=== PATIENT | female | born 1990 | race Caucasian/White ===

== ENCOUNTER 2020-01-24 11:44 | Emergency (ER) | payer MEDICAID, OTHER ==
--- OUTSIDE RECORDS SUMMARY | 2020-01-24 12:40 | XMS REPORT | Summary of Care ---
:1990 Author Organization [facility] Address [address] [place] [address] Care Team Providers Name Role Phone Shani Rodas Primary Care Provider Reason for Visit Reason Comments Ear Pain left Encounter Details Date Type Department Care Team Description 01/07/2020 Office Visit [facility] Stack, Bri, Acute otalgia, left [address] [employer]TE[employer]ICIAN (Primary Dx) [place] [id number] [address] [facility] [phone] [place] [address] Allergies Active Allergy Reactions Severity Noted Date Comments Gluten Meal GI Reaction 07/06/2014 Sumatriptan Succinate GI Reaction 04/10/2014 documented as of this encounter (statuses as of 01/09/2020) Medications Medication Sig Dispensed Refills Start Date End Date Status fluticasone (FLONASE) [place] 2 Sprays in 16 g 0 12/07/2018 Active 50 MCG/ACT Nasal nose DAILY. Suspension Vit-Fe Take 1 Tab by 0 Active Fumarate-FA ( mouth DAILY. COMPLETE PO) Norethindrone, Take 1 Tab by 0 Active Contraceptive, mouth. (JOLIVETTE) 0.35 MG Oral Tab Potassium Chloride CR 8 TAKE 1 CAPSULE BY 90 Cap 1 11/07/2019 Active MEQ Oral Cap CR MOUTH ONCE DAILY busPIRone (BUSPAR) 10 Take 1 Tab by 180 Tab 1 11/07/2019 Active MG Oral TabIndications: mouth TWICE Other depression DAILY. venlafaxine (EFFEXOR Take 1 Cap by 180 Cap 1 11/07/2019 Active XR) 75 MG Oral CAPSULE mouth TWICE SR 24 HRIndications: DAILY. Nonintractable migraine, unspecified migraine type ondansetron (ZOFRAN) 4 Take 4 mg by 18 Tab 0 11/15/2019 Active MG Oral Tab mouth EVERY EIGHT HOURS NEEDED (for migraine with nausea). butalbital-acetaminophe TAKE 1 TABLET BY 28 Tab 0 11/15/2019 Active n-caffeine (FIORICET) MOUTH EVERY 4 50-325-40 MG Oral Tab HOURS (MAX 6 TABS DAILY) amoxicillin-clavulanic Take 1 Tab by 20 Tab 0 01/07/2020 Active acid (AUGMENTIN) mouth TWICE 875-125 MG Oral DAILY. TabIndications: Acute otalgia, left Hospital, Clinic, or Other Ordered Dose Route Frequency Start Date End Date Status Facility Administered Medication carbamide peroxide (DEBROX 4 Drop AD BID 09/11/2017 Active OTIC, EAR WAX REMOVAL) otic solution 6.5 % documented as of this encounter (statuses as of 01/09/2020) Active Problems Problem Noted Date Depression 03/02/2017 Acute recurrent sinusitis 02/25/2016 Nephrolithiasis 01/04/2016 Adult BMI 30+ 09/06/2014 Shoulder pain 07/06/2014 Shoulder instability 05/01/2014 Right shoulder pain 04/10/2014 Muscle atrophy of upper extremity 04/10/2014 PONV (postoperative nausea and vomiting) Migraine Generalized anxiety disorder Comments Yes documented as of this encounter (statuses as of 01/09/2020) Immunizations Name Administration Dates Next Due Influenza (IM) Preservative Free 07/25/2019, 09/11/2017 documented as of this encounter Social History Tobacco Use Types Packs/Day Years Used Date Never Smoker Smokeless Tobacco: Never Used Alcohol Use Drinks/Week oz/Week Comments No Comments Yes Sex Assigned at Date Recorded Not on file Job Start Date Occupation Industry Not on file Not on file Not on file Travel History Travel Start Travel End No recent travel history available. documented as of this encounter Last Filed Vital Signs Vital Sign Reading Time Taken Comments Blood Pressure 124/72 01/07/2020 11:21 AM EST Pulse 73 01/07/2020 11:21 AM EST Temperature 36.8 01/07/2020 11:21 AM EST C (98.3 F) Respiratory Rate 18 01/07/2020 11:21 AM EST Oxygen Saturation 98% 01/07/2020 11:21 AM EST Inhaled Oxygen Concentration - - Weight - - Height - - Body Mass Index - - documented in this encounter Patient Instructions Patient InstructionsSophyBriCHANDRIKA - 01/07/2020 11:00 AM EST Please get medically evaluated if your ear pain does not improve Patient Education Ear Infections (Otitis Media) Discharge Instructions About this topic Otitis media means you have an infection or inflammation in your middle ear. Your eardrum and the space behind it is your middle ear. If you have a cold, allergies, or an infection, your middle ear canbecome filled with mucus. Most often, tubes in your throat can clear this mucus. When you are sick, they can become blocked, and fluid may build up in the middle part of your ear. Germs can infect thisfluid causing an ear infection or otitis media. What care is needed at home? Ask your doctor what you need to do when you go home. Make sure you ask questions if you do notunderstand what the doctor says. This way you will know what you need to do. Use a heating pad or warm water bottle on the ear to help ease the pain. If your doctor tells you to use heat, put a heating pad on your ear for no more than 20 minutes at a time. Never go to sleep with a heating pad on as this can cause anthony. You can also try ice to help ease your pain. Place an ice pack or a bag of frozen peas wrapped in a towel over the painful part. Never put ice right on the skin. Do not leave the ice on more than 10 to 15 minutes at a time. You may go back to school or work when you feel well. Do not swim if you have a burst eardrum. Ask your doctor if you should wear earplugs while swimming. Do not put anything in the ear unless told by your doctor. What follow-up care is needed? Otitis media may need to be monitored. Your doctor may ask you to make visits to the office to check on your progress. Be sure to keep these visits. You may need to go see other doctors if you have problems hearing or have many ear infections. What drugs may be needed? The doctor may order drugs to: Help with pain Fight an infection Will physical activity be limited? Do not drive or run machines if you are taking drugs that make you drowsy. You should avoid flying and diving. You may return to normal activities when signs have gone away. What problems could happen? Loss of hearing Long-term hearing problems Very bad infection in the bone behind the eardrum Problems with balance What can be done to prevent this health problem? If you smoke, quit. Do not go near people who smoke. Stay away from people who have colds. Wash your hands often. When do I need to call the doctor? Fever of 100.4F (38C) or higher after 3 days of taking antibiotics Feeling drowsy or confused Neck pain, stiff neck, or headache Fluid or blood drains from the ear canal Seizure Dizziness You are not feeling better in 2 or 3 days or you are feeling worse Teach Back: Helping You Understand The Teach Back Method helps you understand the information we are giving you. The idea is simple. After talking with the staff, tell them in your own words what you were just told. This helps to make sure the staff has covered each thing clearly. It also helps to explain things that may have been a bit confusing. Before going home, make sure you are able to do these: I can tell you about my condition. I can tell you what may help ease my pain. I can tell you what I will do if I have neck pain, a stiff neck, or fluid draining from my ear. Where can I learn more? [employer] https://familydoctor.org/condition/qejtgt-nglqs-uaye-effusion/ Kids [employer] http://kidshealth.org/parent/infections/ear/otitis_media.html National [place] on Deafness and Other Communication Disorders http://www.nidcd.nih.gov/health/hearing/Pages/earinfections.aspx Last Reviewed Date 2018-02-16 Consumer Information Use and Disclaimer This information is not specific medical advice and does not replace information you receive from your health care provider. This is only a brief summary of general information. It does NOT include allinformation about conditions, illnesses, injuries, tests, procedures, treatments, therapies, discharge instructions or life-style choices that may apply to you. You must talk with your health care provider for complete information about your health and treatment options. This information should not beused to decide whether or not to accept your health care providers advice, instructions or recommendations. Only your health care provider has the knowledge and training to provide advice that isright for you. Copyright Copyright 2019 [employer] and its affiliates and/or licensors. All rights reserved. documented in this encounter Progress Notes Bri Beckett CRNP - 01/07/2020 11:00 AM EST PATIENT: Qing Patricia : 1990 DATE OF SERVICE: 01/07/2020 CHIEF COMPLAINT: Chief Complaint Patient presents with Ear Pain left Subjective HISTORY OF PRESENT ILLNESS: Qing Patricia is a 29-y.o. female. HPI She started with left ear ache on Thursday She reports its a constant throb She has not taking anything for her pain She is eating and drinking ok No ear drainage Reports she called for an appt yesterday but could not get in to the office due to the snow Her kids were sick with viruses last week but she did not feel sick Reports she has had an ear infection in the past Past Medical History: Diagnosis Date Generalized anxiety disorder Migraine PONV (postoperative nausea and vomiting) History reviewed. No pertinent family history. Current Outpatient Medications Medication Sig amoxicillin-clavulanic acid (AUGMENTIN) 875-125 MG Oral Tab Take 1 Tab by mouth TWICE DAILY. busPIRone (BUSPAR) 10 MG Oral Tab Take 1 Tab by mouth TWICE DAILY. kxjelnmhdg-sapmsgrfiqclv-zyssqrob (FIORICET) 50-325-40 MG Oral Tab TAKE 1 TABLET BY MOUTH EVERY 4 HOURS (MAX 6 TABS DAILY) fluticasone (FLONASE) 50 MCG/ACT Nasal Suspension [place] 2 Sprays in nose DAILY. Norethindrone, Contraceptive, (JOLIVETTE) 0.35 MG Oral Tab Take 1 Tab by mouth. ondansetron (ZOFRAN) 4 MG Oral Tab Take 4 mg by mouth EVERY EIGHT HOURS NEEDED (for migraine with nausea). Potassium Chloride CR 8 MEQ Oral Cap CR TAKE 1 CAPSULE BY MOUTH ONCE DAILY Vit-Fe Fumarate-FA ( COMPLETE PO) Take 1 Tab by mouth DAILY. venlafaxine (EFFEXOR XR) 75 MG Oral CAPSULE SR 24 HR Take 1 Cap by mouth TWICE DAILY. Current Facility-Administered Medications Medication carbamide peroxide (DEBROX OTIC, EAR WAX REMOVAL) otic solution 6.5 % Allergies Allergen Reactions Gluten Meal GI Reaction Imitrex [Sumatriptan Succinate] GI Reaction Social History Socioeconomic History Marital status: Single Spouse name: Not on file Number of children: Not on file Years of education: Not on file Highest education level: Not on file Occupational History Not on file Social Needs Financial resource strain: Not on file Food insecurity Worry: Not on file Inability: Not on file Transportation needs Medical: Not on file Non-medical: Not on file Tobacco Use Smoking status: Never Smoker Smokeless tobacco: Never Used Substance and Sexual Activity Alcohol use: No Drug use: No Sexual activity: Yes Partners: Male Comment: single SO x 11 months Lifestyle Physical activity Days per week: Not on file Minutes per session: Not on file Stress: Not on file Relationships Social connections Talks on phone: Not on file Gets together: Not on file Attends gnosticist service: Not on file Active member of club or organization: Not on file Attends meetings of clubs or organizations: Not on file Relationship status: Not on file Intimate partner violence Fear of current or ex partner: Not on file Emotionally abused: Not on file Physically abused: Not on file Forced sexual activity: Not on file Other Topics Concern Not on file Social History Narrative Works at [employer] REVIEW OF SYSTEMS: ROS Objective PHYSICAL EXAM: VITALS: BP 124/72 | Pulse 73 | Temp 98.3 F (36.8 C) (Tympanic) | Resp 18 | SpO2 98% There is no height or weight on file to calculate BMI. Physical Exam Vitals signs and nursing note reviewed. HENT: Right Ear: Tympanic membrane normal. Left Ear: No tenderness. A middle ear effusion is present. No mastoid tenderness. Tympanic membrane is erythematous. Nose: Nose normal. Mouth/Throat: Mouth: Mucous membranes are moist. Neck: Musculoskeletal: Neck supple. No muscular tenderness. Cardiovascular: Rate and Rhythm: Normal rate. Pulmonary: Effort: Pulmonary effort is normal. Musculoskeletal: General: Swelling present. Skin: General: Skin is warm. Neurological: Mental Status: She is alert and oriented to person, place, and time. ASSESSMENT / IMPRESSION: ICD-9-CM ICD-10-CM 1. Acute otalgia, left 388.70 H92.02 amoxicillin-clavulanic acid (AUGMENTIN) 875 -125 MG Oral Tab Patient Instructions Please get medically evaluated if your ear pain does not improve Patient Education Ear Infections (Otitis Media) Discharge Instructions About this topic Otitis media means you have an infection or inflammation in your middle ear. Your eardrum and the space behind it is your middle ear. If you have a cold, allergies, or an infection, your middle ear canbecome filled with mucus. Most often, tubes in your throat can clear this mucus. When you are sick, they can become blocked, and fluid may build up in the middle part of your ear. Germs can infect thisfluid causing an ear infection or otitis media. What care is needed at home? Ask your doctor what you need to do when you go home. Make sure you ask questions if you do notunderstand what the doctor says. This way you will know what you need to do. Use a heating pad or warm water bottle on the ear to help ease the pain. If your doctor tells you to use heat, put a heating pad on your ear for no more than 20 minutes at a time. Never go to sleep with a heating pad on as this can cause anthony. You can also try ice to help ease your pain. Place an ice pack or a bag of frozen peas wrapped in a towel over the painful part. Never put ice right on the skin. Do not leave the ice on more than 10 to 15 minutes at a time. You may go back to school or work when you feel well. Do not swim if you have a burst eardrum. Ask your doctor if you should wear earplugs while swimming. Do not put anything in the ear unless told by your doctor. What follow-up care is needed? Otitis media may need to be monitored. Your doctor may ask you to make visits to the office to check on your progress. Be sure to keep these visits. You may need to go see other doctors if you have problems hearing or have many ear infections. What drugs may be needed? The doctor may order drugs to: Help with pain Fight an infection Will physical activity be limited? Do not drive or run machines if you are taking drugs that make you drowsy. You should avoid flying and diving. You may return to normal activities when signs have gone away. What problems could happen? Loss of hearing Long-term hearing problems Very bad infection in the bone behind the eardrum Problems with balance What can be done to prevent this health problem? If you smoke, quit. Do not go near people who smoke. Stay away from people who have colds. Wash your hands often. When do I need to call the doctor? Fever of 100.4F (38C) or higher after 3 days of taking antibiotics Feeling drowsy or confused Neck pain, stiff neck, or headache Fluid or blood drains from the ear canal Seizure Dizziness You are not feeling better in 2 or 3 days or you are feeling worse Teach Back: Helping You Understand The Teach Back Method helps you understand the information we are giving you. The idea is simple. After talking with the staff, tell them in your own words what you were just told. This helps to make sure the staff has covered each thing clearly. It also helps to explain things that may have been a bit confusing. Before going home, make sure you are able to do these: I can tell you about my condition. I can tell you what may help ease my pain. I can tell you what I will do if I have neck pain, a stiff neck, or fluid draining from my ear. Where can I learn more? [employer] https://familydoctor.org/condition/jsfdrl-lyygo-exdk-effusion/ Kids [employer] http://kidshealth.org/parent/infections/ear/otitis_media.html National [place] on Deafness and Other Communication Disorders http://www.nidcd.nih.gov/health/hearing/Pages/earinfections.aspx Last Reviewed Date 2018-02-16 Consumer Information Use and Disclaimer This information is not specific medical advice and does not replace information you receive from your health care provider. This is only a brief summary of general information. It does NOT include allinformation about conditions, illnesses, injuries, tests, procedures, treatments, therapies, discharge instructions or life-style choices that may apply to you. You must talk with your health care provider for complete information about your health and treatment options. This information should not beused to decide whether or not to accept your health care providers advice, instructions or recommendations. Only your health care provider has the knowledge and training to provide advice that isright for you. Copyright Copyright 2019 [employer] and its affiliates and/or licensors. All rights reserved. Plan Author: CHANDRIKA Deras 01/07/2020 11:31 documented in this encounter Plan of Treatment Date Type Specialty Care Team Description 01/27/2020 Office Visit Endocrinology Cherise Zelaya CRNP [address] [place] [address] 03/02/2020 Office Visit Family Practice Shani Rodas MD [address] [place] [address] Health Maintenance Due Date Last Done Comments DTaP/Tdap/Td Vaccines (1 - 2001 Tdap) PAP SMEAR 08/18/2017 08/18/2014 (Previously completed), 05/10/2013 DEPRESSION SCREENING 07/25/2020 07/25/2019 HIV SCREENING Completed 06/14/2015 INFLUENZA VACCINE Completed 07/25/2019, 09/11/2017 HEPATITIS A IMMUNIZATION Aged Out No longer eligible based SERIES on patient's age to complete this topic HPV IMMUNIZATION SERIES Aged Out No longer eligible based on patient's age to complete this topic MENINGOCOCCAL VACCINE IMM Aged Out No longer eligible based on patient's age to complete this topic PNEUMOCOCCAL 0-64 YRS Aged Out No longer eligible based on patient's age to complete this topic documented as of this encounter Goals Goal Patient Goal Associated Recent Patient-Stated? Author Type Problems Progress Depression Depression hernan Young (PHQ-9) MD Yuan total score < 5 Note: This is an individualized treatment (depression) goal for Qing Patricia: Displayed above is your goal for a depression screening (PHQ-9) score that would indicate good control of your depression. Keep a regular sleep schedule Lifestyle No Yuan Vega MD Note: This is an individualized lifestyle goal for Qing Patricai: Please maintain a regular sleep schedule. This may help with some symptoms of depression. Take all prescribed medications as directed Self-management No Yuan Vega MD Note: This is an individualized self-management goal for Qing Patricia: Please take all prescribed medications as directed. 1. Do not skip doses. If you cannot afford your medications, talk with your doctor. 2. Use a pill reminder system such as a pill box if needed. Your pharmacist can help you with this. 3. Contact your Pharmacy 5 days before your medication runs out. If you cannot take your medications for any reasons, talk with your doctor. 4. Please bring all of your medication bottles and inhalers (or a list of all your medications/inhalers) with you to every visit. Potential barriers to meeting all of your care plan goals will continue to be addressed on an ongoing basis. documented as of this encounter Results Not on filedocumented in this encounter Visit Diagnoses Diagnosis Acute otalgia, left documented in this encounter Guarantor Name Account Type Relation to Date of Phone Billing Patient Address Qing Patricia Personal/Family 1990 [address] (Home) [place], [place] [phone] (Work) documented as of this encounter"
[2020-01-24 12:45] VITALS: BP 116/73
--- NOTE | 2020-01-24 12:59 | UC ---
General HPI - HPI Summary HPI Summary: States she is rather clumsy and stepped wrong and initially injured her right ankle which appears to be getting better, but the lateral side of her right lower leg has continued to get worse. She has been hobbling around, wrapping her leg and using motrin without much relief. No falls. No hx of broken bones in the past. Meds: REviewed - History of Current Complaint Chief Complaint: UCLowerExtremity Stated Complaint: RIGHT LEG PAIN Time Seen by Provider: 01/24/20 12:51 Pain Intensity: 6 - Allergy/Home Medications Allergies/Adverse Reactions: Allergies Allergy/AdvReac Type Severity Reaction Status Date / Time sumatriptan [From Imitrex] Allergy Vomiting Verified 01/24/20 12:46 Home Medications: Home Medications Norethindrone 1 tab PO DAILY 01/24/20 [History Confirmed 01/24/20] Potassium Chlor TAB* [Klor Con ER TAB 10 MEQ*] 1 tab PO DAILY 01/24/20 [History Confirmed 01/24/20] Vitamin TAB* 1 tab PO DAILY 01/24/20 [History Confirmed 01/24/20] Venlafaxine CAP (NF) 75 mg PO BID 01/24/20 [History Confirmed 01/24/20] busPIRone TAB* [Buspar TAB*] 1 tab PO DAILY 01/24/20 [History Confirmed 01/24/20 ] PMH/Surg Hx/FS Hx/Imm Hx Previously Healthy: Yes - Surgical History Surgical History: Yes Surgery Procedure, Year, and Place: lithotrip stent r kidney,right knee , shoulder,lap - Social History Alcohol Use: None Substance Use Type: None Smoking Status (MU): Never Smoked Tobacco Review of Systems All Other Systems Reviewed And Are Negative: Yes Physical Exam Triage Information Reviewed: Yes Appearance: Well-Appearing Vital Signs: Initial Vital Signs Temp 97.8 F 01/24/20 12:41 Pulse 94 01/24/20 12:41 Resp 16 01/24/20 12:41 BP 116/73 01/24/20 12:41 Pulse Ox 100 01/24/20 12:41 Vital Signs Reviewed: Yes Eyes: Positive: Conjunctiva Clear Musculoskeletal: Positive: Other: - right ankle, minimal tenderness over lateral malleolus, tenderness palpated over mid fibular area on right. No edema or erythema noted Diagnostics - Radiology right tib/fib Radiology Interpretation Completed By: Radiologist Summary of Radiographic Findings: NO fracture noted Course/Dx - Course Course Of Treatment: This is a 29 yr old with right leg pain Tib/Fib: xray Negative Muscle strain Recommend rest, ice, elevated and ibuprofen as needed for pain/swelling -take as directed If symptoms persist, consider follow up with sports medicine - Diagnoses Provider Diagnosis: Muscle strain Discharge ED - Sign-Out/Discharge Documenting (check all that apply): Patient Departure All imaging exams completed and their final reports reviewed: No Studies - Discharge Plan Condition: Good Disposition: HOME Patient Education Materials: Muscle Strain (ED) Referrals: No Primary Care Phys,NOPCP [Primary Care Provider] - Nella Aburto MD [Medical Doctor] - Ashkan Lemus MD [Medical Doctor] - Additional Instructions: Recommend rest, ice, elevated and ibuprofen as needed for pain/swelling -take as directed If symptoms persist, consider follow up with sports medicine - Billing Disposition and Condition Condition: GOOD Disposition: Home
== END 2020-01-24 13:48 | disposition home or self-care (01) ==
LOC: UCEAST 11:44
DX: S96.911A Strain of unspecified muscle and tendon at ankle and foot level, right foot, initial encounter (principal); Z88.8 Allergy status to other drugs, medicaments and biological substances; X50.0XXA Overexertion from strenuous movement or load, initial encounter; Y92.9 Unspecified place or not applicable
CPT/HCPCS: 99201; G0463